=== PATIENT | female | born 1965 | race Caucasian/White ===

== ENCOUNTER 2021-08-25 07:22 | Emergency (ER) | payer BC ==
[2021-08-25] MEDS ORDERED: Ondansetron 4 MG/2 ML SDV IVPUSH ONE (08:18)
--- NOTE | 2021-08-25 08:26 | EDM.PDOC ---
ED HPI GENERAL MEDICAL PROBLEM - General Chief Complaint: Back Pain or Injury Stated Complaint: BACK PAIN Time Seen by Provider: 08/25/21 07:57 Source of Information: Reports: Patient History Limitations: Reports: No Limitations - History of Present Illness INITIAL COMMENTS - FREE TEXT/NARRATIVE: Ms. Santos is a pleasant 56-year-old woman who now presents to the ED due to a "gallbladder attack". She states that she developed right upper quadrant pain that radiates through to her right infrascapular area on 08/22/2021. She is unable to describe the character of the pain. She states that it is constant. Initially, she felt better if supine, sometimes, but more recently, position makes no difference. She states that she has had nausea, but no emesis. She is also had some watery diarrhea. No recent fever. She has not taken any [id number] or home remedies to address her symptoms. No prior similar symptoms. The patient last ate around 18:00 last night. Here in the ED, the patient's initial BP is found to be elevated at 205/101, otherwise, she is hemodynamically stable, afebrile, saturating 97% on room air. She appears to be relatively comfortable, in no acute distress. Prior to Wednesday, the patient denies having a recent fever, chills, sore throat, ear pain, nasal or sinus congestion, cough, dyspnea, chest pain, palpitations, nausea, vomiting, constipation, diarrhea, abdominal pain, urinary symptoms, recent weight gain or weight loss, recent bloody bowel movements or black bowel movements, recent joint aches, headaches, or rashes. The patient's PCP is Hanna Rosario NP. She has not received a COVID vaccination, however, she has received an influenza vaccination this season. Right Upper Abdomen Pain Score (Numeric/FACES): 8 - Related Data Allergies Allergy/AdvReac Type Severity Reaction Status Date / Time No Known Allergies Allergy Verified 08/25/21 07:38 Home Meds: Home Meds Levothyroxine [Synthroid] 50 mcg PO ACBREAKFAST 08/25/21 [History] Losartan [Cozaar] 50 mg PO BEDTIME 08/25/21 [History] Ondansetron [Zofran ODT] 1 tab PO Q8H PRN #10 tab.dis 08/25/21 [Rx] Rosuvastatin [Crestor] 10 mg PO BEDTIME 08/25/21 [History] Sertraline [Zoloft] 100 mg PO BEDTIME 08/25/21 [History] Past Medical History Cardiovascular History: Reports: High Cholesterol, Hypertension Psychiatric History: Reports: Anxiety, Depression Endocrine/Metabolic History: Reports: Hypothyroidism - Past Surgical History HEENT Surgical History: Reports: Oral Surgery (dental extractions) Female Surgical History: Reports: Endometrial Ablation Social & Family History - Tobacco Use Tobacco Use Status *Q: Current Every Day Tobacco User Tobacco Use Within Last Twelve Months: Other (See Below) (Also uses nicotine pouches) Years of Tobacco use: 43 Packs/Tins Daily: 0.1 Packs/Tins Daily Comment: Down from 1 ppd Tobacco Use Comment: Started smoking 1977 - Caffeine Use Caffeine Use: Reports: Coffee, Tea - Alcohol Use Alcohol Use History: Yes Alcohol Use Frequency: Daily - Recreational Drug Use Recreational Drug Use: Yes Drug Use in Last 12 Months: Yes Recreational Drug Type: Reports: Marijuana/Hashish (smokes 2-3x/wk) - Living Situation & Occupation Living situation: Reports: , Alone Occupation: Employed ([employer]) ED ROS GENERAL - Review of Systems Review Of Systems: Comprehensive ROS is negative, except as noted in HPI. ED EXAM, GI/ABD - Physical Exam Exam: See Below Exam Limited By: No Limitations General Appearance: Alert, WD/WN, No Apparent Distress Eyes: Bilateral: Normal Appearance, EOMI Ears: Normal External Exam, Hearing Grossly Normal Nose: Normal Inspection Throat/Mouth: Normal Inspection, Normal Lips, Normal Voice, No Airway Compromise Head: Atraumatic, Normocephalic Neck: Normal Inspection, Full Range of Motion Respiratory/Chest: No Respiratory Distress, Lungs Clear, Normal Breath Sounds, No Accessory Muscle Use Cardiovascular: Normal Peripheral Pulses, Regular Rate, Rhythm, No Edema, No Gallop, No JVD, No Murmur, No Rub GI/Abdominal Exam: Normal Bowel Sounds, Soft, Non-Tender, No Organomegaly, No Distention, No Abnormal Bruit, No Mass, Pelvis Stable (Female) Exam: Normal External Exam, Normal Speculum Exam, Normal Bimanual Exam Rectal (Female) Exam: Normal Exam, Normal Rectal Tone Back Exam: Normal Inspection, Full Range of Motion, NT Extremities: Normal Inspection, Normal Range of Motion, Non-Tender, Normal Capillary Refill, No Pedal Edema Neurological: Alert, Oriented, CN II-XII Intact, Normal Cognition, Normal Gait, Normal Reflexes, No Motor/Sensory Deficits Psychiatric: Normal Affect, Normal Mood Skin Exam: Warm, Dry, Intact, Normal Color, No Rash Lymphatic: No Adenopathy Course - Vital Signs Last Recorded V/S: Last Vital Signs Temp 35.9 C L 08/25/21 07:35 Pulse 69 08/25/21 07:35 Resp 18 08/25/21 07:35 BP 205/101 H 08/25/21 07:35 Pulse Ox 97 08/25/21 07:35 - Orders/Labs/Meds Labs: Laboratory Tests 08/25/21 08/25/21 08/25/21 Range/Units 07:50 07:50 08:18 WBC 6.64 (3.98-10.04) K/mm3 RBC 4.24 (3.98-5.22) M/mm3 Hgb 13.5 (11.2-15.7) gm/dl Hct 43.3 (34.1-44.9) % MCV 102.1 H (79.4-94.8) fl MCH 31.8 (25.6-32.2) pg MCHC 31.2 L (32.2-35.5) g/dl RDW Std Deviation 45.7 (36.4-46.3) fL Plt Count 197 (182-369) K/mm3 MPV 10.4 (9.4-12.3) fl Neutrophils % (Manual) 51 (40-60) % Band Neutrophils % 0 (0-10) % Lymphocytes % (Manual) 36 (20-40) % Atypical Lymphs % 0 % Monocytes % (Manual) 11 H (2-10) % Eosinophils % (Manual) 2 (0.7-5.8) % Basophils % (Manual) 0 L (0.1-1.2) Platelet Estimate Adequate Anisocytosis 1+ slight Macrocytosis 1+ slight RBC Morph Comment Abnormal Sodium 142 (136-145) mEq/L Potassium 4.1 (3.5-5.1) mEq/L Chloride 106 (98-107) mEq/L Carbon Dioxide 25 (21-32) mEq/L Anion Gap 15.1 H (5-15) BUN 20 H (7-18) mg/dL Creatinine 0.9 (0.55-1.02) mg/dL Est Cr Clr Drug Dosing 62.80 mL/min Estimated GFR (MDRD) > 60 (>60) mL/min BUN/Creatinine Ratio 22.2 H (14-18) Glucose 91 (70-99) mg/dL Calcium 8.7 (8.5-10.1) mg/dL Total Bilirubin 0.4 (0.2-1.0) mg/dL AST 27 (15-37) U/L ALT 58 (14-59) U/L Alkaline Phosphatase 67 (46-116) U/L Total Protein 7.2 (6.4-8.2) g/dl Albumin 3.9 (3.4-5.0) g/dl Globulin 3.3 gm/dL Albumin/Globulin Ratio 1.2 (1-2) Lipase 159 (73-393) U/L Urine Color Light yellow (Yellow) Urine Appearance Clear (Clear) Urine pH 6.0 (5.0-8.0) Ur Specific Belcher 1.025 (1.005-1.030) Urine Protein Negative (Negative) Urine Glucose (UA) Negative (Negative) Urine Ketones Negative (Negative) Urine Occult Blood Negative (Negative) Urine Nitrite Negative (Negative) Urine Bilirubin Negative (Negative) Urine Urobilinogen 0.2 (0.2-1.0) Ur Leukocyte Esterase Negative (Negative) Urine RBC 0-5 (0-5) /hpf Urine WBC 0-5 (0-5) /hpf Ur Squamous Epith Cells 0-5 (0-5) /hpf Urine Bacteria Few (FEW) /hpf Urine Mucus Few (FEW) /hpf Urine HCG, Qual (NEGATIVE) 08/25/21 Range/Units 08:18 WBC (3.98-10.04) K/mm3 RBC (3.98-5.22) M/mm3 Hgb (11.2-15.7) gm/dl Hct (34.1-44.9) % MCV (79.4-94.8) fl MCH (25.6-32.2) pg MCHC (32.2-35.5) g/dl RDW Std Deviation (36.4-46.3) fL Plt Count (182-369) K/mm3 MPV (9.4-12.3) fl Neutrophils % (Manual) (40-60) % Band Neutrophils % (0-10) % Lymphocytes % (Manual) (20-40) % Atypical Lymphs % % Monocytes % (Manual) (2-10) % Eosinophils % (Manual) (0.7-5.8) % Basophils % (Manual) (0.1-1.2) Platelet Estimate Anisocytosis Macrocytosis RBC Morph Comment Sodium (136-145) mEq/L Potassium (3.5-5.1) mEq/L Chloride (98-107) mEq/L Carbon Dioxide (21-32) mEq/L Anion Gap (5-15) BUN (7-18) mg/dL Creatinine (0.55-1.02) mg/dL Est Cr Clr Drug Dosing mL/min Estimated GFR (MDRD) (>60) mL/min BUN/Creatinine Ratio (14-18) Glucose (70-99) mg/dL Calcium (8.5-10.1) mg/dL Total Bilirubin (0.2-1.0) mg/dL AST (15-37) U/L ALT (14-59) U/L Alkaline Phosphatase (46-116) U/L Total Protein (6.4-8.2) g/dl Albumin (3.4-5.0) g/dl Globulin gm/dL Albumin/Globulin Ratio (1-2) Lipase (73-393) U/L Urine Color (Yellow) Urine Appearance (Clear) Urine pH (5.0-8.0) Ur Specific Belcher (1.005-1.030) Urine Protein (Negative) Urine Glucose (UA) (Negative) Urine Ketones (Negative) Urine Occult Blood (Negative) Urine Nitrite (Negative) Urine Bilirubin (Negative) Urine Urobilinogen (0.2-1.0) Ur Leukocyte Esterase (Negative) Urine RBC (0-5) /hpf Urine WBC (0-5) /hpf Ur Squamous Epith Cells (0-5) /hpf Urine Bacteria (FEW) /hpf Urine Mucus (FEW) /hpf Urine HCG, Qual Negative (NEGATIVE) Meds: Medications Discontinued Medications Generic Name Dose Route Start Last Admin Trade Name Freq PRN Reason Stop Dose Admin Diatrizoate Meglum/Diatrizoate Sod 120 ml 08/25/21 09:21 08/25/21 10:43 Diatrizoate Meglumine/Diatrizoate Sodium 37% 120 Ml Bottle PO 08/25/21 09:22 30 ml ONETIME ONE Administration Sodium Chloride 1,000 mls @ 150 mls/hr 08/25/21 08:30 08/25/21 09:06 Normal Saline IV 150 mls/hr ASDIRECTED SEBASTIAN Administration Iopamidol 100 ml 08/25/21 09:21 08/25/21 10:43 Iopamidol 612 Mg/Ml 100 Ml Bottle IVPUSH 08/25/21 09:22 100 ml ONETIME ONE Administration Ondansetron HCl 4 mg 08/25/21 08:18 08/25/21 09:06 Ondansetron 4 Mg/2 Ml Sdv IVPUSH 08/25/21 08:19 4 mg ONETIME ONE Administration Sodium Chloride 10 ml 08/25/21 09:21 08/25/21 10:43 Sodium Chloride 0.9% 10 Ml Syringe FLUSH 10 ml ONETIME PRN Administration IV FLUSH - Re-Assessments/Exams Free Text/Narrative Re-Assessment/Exam: 08/25/21 08:20 The patient's presentation is consistent with acute cholecystitis, however, her symptoms could also be due to an unusual presentation of a right ureterolith. I have ordered a work-up that includes several blood tests, a urinalysis by clean-catch, a urine test, and ultrasound of the right upper quadrant, and a CT of the abdomen and pelvis with oral and IV contrast. In the meantime, the patient will be treated with IV Zofran and IV fluid. She is declining pain medication at this time, but was instructed to let the nurse know if she changes her mind. 08/25/21 10:56 The patient's CBC is unremarkable. Her CMP is remarkable for a BUN slightly elevated 20, with a Cr within normal limits at 0.9, with remainder of her CMP being unremarkable. Her lipase level is within normal limits at 159. Her urinalysis is unremarkable. Her urine test is negative. Ultrasound of the right upper quadrant is read by Dr. Narvaez as: 1. No abnormalities identified on right upper quadrant abdominal ultrasound. 08/25/21 11:00 CT of the abdomen and pelvis with oral and IV contrast is read by Dr. Narvaez as: 1. Findings were felt to be chronic as noted above. 2. Nothing acute is appreciated on CT study of the abdomen and pelvis. 08/25/21 11:04 Test results discussed with the patient. As above, today's work-up is completely unremarkable, and does not explain the cause of her pain. I explained to the patient that a negative work-up does not necessarily mean that her pain is not due to a sick gallbladder, and that further work-up, including a HIDA scan, is needed. I will refer her to Dr. Vega for further evaluation. I will submit a prescription for Zofran ODT to [facility]. She is to stay adequately hydrated, and avoid fatty foods. Departure - Departure Time of Disposition: 11:06 Disposition: Home, Self-Care 01 Condition: Good Clinical Impression: Right upper quadrant abdominal pain of unknown etiology - Discharge Information *PRESCRIPTION DRUG MONITORING PROGRAM REVIEWED*: Not Applicable *COPY OF PRESCRIPTION DRUG MONITORING REPORT IN PATIENT FUAD: Not Applicable Prescriptions: Ondansetron [Zofran ODT] 1 tab PO Q8H PRN #10 tab.dis PRN Reason: Nausea/Vomiting Instructions: Abdominal Pain, Adult, [id number] Referrals: Hanna Rosario NP [Primary Care Provider] - Allen Vega MD [Physician] - Forms: ED Department Discharge Additional Instructions: You were seen in the emergency room for upper right abdominal pain radiating through to your right back, with nausea and watery diarrhea, since Wednesday. Work-up in the ER included several blood tests, a urinalysis, a urine test, an ultrasound of your upper right abdomen, and a CT of your abdomen and pelvis with oral and IV contrast. Your entire work-up was unremarkable, and does not explain the cause of your pain. As discussed, just because the work-up is negative in the ER, it does not necessarily mean that your pain is not from your gallbladder. Further work-up is needed. Stay adequately hydrated and eat a low-fat diet. A prescription for the antinausea medicine Zofran ODT has been sent to the [facility], located at [address] [place] [address]. You may dissolve 1 tablet of Zofran ODT on your tongue up to every 8 hours, as needed for nausea/vomiting. Please follow-up with the Surgeon Dr. Allen Vega at the next available appointment. If any other problems, please do not hesitate to return to the ER. Sepsis Event Note (ED) - Evaluation Sepsis Screening Result: No Definite Risk
[2021-08-25] MEDS ORDERED: Sodium Chloride 0.9% 1,000 ML IV SCH (08:30)
[2021-08-25] MEDS ORDERED: Iopamidol 612 MG/ML 100 ML Bottle IVPUSH ONE (09:21)
[2021-08-25] MEDS ORDERED: Diatrizoate Meglumine/Diatrizoate Sodium 37% 120 ML Bottle PO ONE (09:21)
--- NOTE | 2021-08-25 09:51 | US ---
Limited abdominal ultrasound: Multiple real-time images of the upper right abdomen are obtained. Comparison: No prior abdominal imaging is available. Liver shows no focal abnormality. Gallbladder contains no shadowing gallstones. No gallbladder wall thickening or biliary duct dilatation is seen. Right kidney shows no hydronephrosis or mass. Right kidney has a length of 9.3 cm. Proximal aorta shows no aneurysm. Tail of the pancreas is obscured by bowel gas. Other portions of the pancreas are felt to be within normal limits. Inferior vena cava is patent. Main portal vein shows normal hepatopedal flow. Impression: 1. No abnormality is identified on right upper quadrant abdominal ultrasound. Diagnostic code #1
[2021-08-25] MEDS: Sodium Chloride 0.9% 10 ML Syringe FLUSH PRN ×2 (10:04→10:43)
--- NOTE | 2021-08-25 10:59 | CT ---
CT abdomen and pelvis Technique: Multiple axial sections were obtained from above the dome of the diaphragm inferiorly through the pubic symphysis. Intravenous and oral contrast were utilized. Delayed images were also obtained through the bladder. Reconstructed coronal and sagittal images were obtained. Comparison: Prior limited abdominal ultrasound of 08/25/21. Findings: Visualized lung bases show nothing acute. Small area of fatty eventration is seen within the posterior right hemidiaphragm which is incidental. Liver contains no focal parenchymal abnormality. Spleen size is normal. Adrenal glands show no nodule. Pancreas shows no abnormality. Gallbladder contains no calcified gallstones. Kidneys show symmetric contrast enhancement without hydronephrosis or mass. Abdominal aorta shows atherosclerotic calcification which continues into the iliac vessels. No aneurysm is seen. No retroperitoneal adenopathy is noted. No mesenteric abnormalities are seen. Appendix is seen which is normal in size. No bowel wall thickening is appreciated. No pelvic mass or adenopathy is seen. Delayed images show contrast within the distal ureters and within the bladder. Bone window settings were reviewed which show nothing acute for the patient's age. Impression: 1. Findings felt to be chronic as noted above. 2. Nothing acute is appreciated on CT study of the abdomen and pelvis. Diagnostic code #1
== END 2021-08-25 11:29 | disposition home or self-care (01) ==
LOC: JD.ED 07:22
DX: R10.11 Right upper quadrant pain (principal); E03.9 Hypothyroidism, unspecified; I10 Essential (primary) hypertension; E78.00 Pure hypercholesterolemia, unspecified; Z72.0 Tobacco use; Z79.899 Other long term (current) drug therapy
CPT/HCPCS: 36415; 74177; 76705; 80053; 81001; 81025; 83690; 85007; 85027; 96374; 99284; J2405; J7030; Q9963; Q9967

== ENCOUNTER 2021-11-06 10:45 | Emergency (ER) | payer BC ==
[2021-11-06] MEDS ORDERED: Sodium Chloride 0.9% 10 ML Syringe FLUSH PRN (11:16)
[2021-11-06] MEDS ORDERED: Albuterol 0.083% 2.5 MG/3 ML Neb Soln NEB ONE ×2 (11:38→12:43)
[2021-11-06] MEDS ORDERED: Benzonatate 100 MG Cap PO ONE (11:38)
--- NOTE | 2021-11-06 11:55 | EDM.PDOC ---
ED HPI GENERAL MEDICAL PROBLEM - General Chief Complaint: Respiratory Problem Stated Complaint: COUGH/WHEEZING/RESPIRATORY ISSUES Time Seen by Provider: 11/06/21 11:09 Source of Information: Reports: Patient History Limitations: Reports: No Limitations, Other (ED vital signs reveal a temp of 96.9, pulse 100, respiratory rate of 18, blood pressure 171/89, pulse ox 87% on room air.) - History of Present Illness INITIAL COMMENTS - FREE TEXT/NARRATIVE: 56-year-old female presents the emergency department today with complaints of cough, dyspnea, chest discomfort associated with cough and decreased appetite. Patient states she started not feeling well 4 days ago however 3 days ago she states that she woke and felt significantly worse. She states that for the past couple of nights she is woken up in a cold sweat. She denies any urinary symptoms. She was evaluated at the walk-in clinic yesterday and states she was swabbed for Covid however she states that she does not feel that they swabbed her adequately. She was then sent home with prescription cough medication which she states has not helped at all. At the time of the patient's arrival to triage, her O2 saturations are 87% on room air. O2 is applied at 2 L per nasal cannula and her sats increased to 100%. States she does have a history of smoking however quit in January 2021. [id number] history. She states she has not had her Covid vaccine nor she had her influenza vaccine. Chest Pain Score (Numeric/FACES): 5 Abdomen Pain Score (Numeric/FACES): 9 - Related Data Allergies Allergy/AdvReac Type Severity Reaction Status Date / Time No Known Allergies Allergy Verified 11/06/21 10:57 Home Meds: Home Meds Levothyroxine [Synthroid] 50 mcg PO ACBREAKFAST 08/25/21 [History] Losartan [Cozaar] 50 mg PO BEDTIME 08/25/21 [History] Ondansetron [Zofran ODT] 1 tab PO Q8H PRN #10 tab.dis 08/25/21 [Rx] Rosuvastatin [Crestor] 10 mg PO BEDTIME 08/25/21 [History] Sertraline [Zoloft] 200 mg PO BEDTIME 08/25/21 [History] Albuterol Sulfate [Albuterol Sulfate Hfa] 2 puff IH Q4H #1 hfa.aer.ad 11/06/21 [Rx] Benzonatate [Tessalon Perles] 100 mg PO TID PRN #20 cap 11/06/21 [Rx] predniSONE [Prednisone] 40 mg PO DAILY #14 tablet 11/06/21 [Rx] Past Medical History Cardiovascular History: Reports: High Cholesterol, Hypertension Gastrointestinal History: Reports: Cholelithiasis HEAD WO[employer] GR[employer]ER History: Reports: Psychiatric History: Reports: Anxiety, Depression Endocrine/Metabolic History: Reports: Hypothyroidism - Infectious Disease History Infectious Disease History: Reports: Chicken Pox - Past Surgical History HEENT Surgical History: Reports: Oral Surgery Female Surgical History: Reports: Endometrial Ablation Dermatological Surgical History: Reports: Other (See Below) Social & Family History - Tobacco Use Tobacco Use Status *Q: Former Tobacco User Years of Tobacco use: 20 Packs/Tins Daily: 0.5 Used Tobacco, but Quit: Yes Month/Year Tobacco Last Used: January 2021 - Caffeine Use Caffeine Use: Reports: Coffee, Tea - Alcohol Use Days Per Week of Alcohol Use: 7 Number of Drinks Per Day: 1 Total Drinks Per Week: 7 - Recreational Drug Use Recreational Drug Use: Yes Drug Use in Last 12 Months: Yes Recreational Drug Type: Reports: Marijuana/Hashish Recreational Drug Use Frequency: Rarely - Living Situation & Occupation Living situation: Reports: , Alone Occupation: Employed ([employer]) ED ROS GENERAL - Review of Systems Review Of Systems: Comprehensive ROS is negative, except as noted in HPI. ED EXAM, GENERAL - Physical Exam Exam: See Below Exam Limited By: No Limitations General Appearance: Alert, WD/WN, Moderate Distress Ears: Normal External Exam, Hearing Grossly Normal Nose: Normal Inspection Throat/Mouth: Normal Inspection, Normal Lips, Normal Voice, No Airway Compromise Head: Atraumatic Neck: Normal Inspection, Supple Respiratory/Chest: Chest Non-Tender, Decreased Breath Sounds, Wheezing (Expiratory wheezing noted bilaterally), Accessory Muscle Use Cardiovascular: Normal Peripheral Pulses, Regular Rate, Rhythm, No Edema, No Murmur Peripheral Pulses: 2+: Radial (L), Radial (R) GI/Abdominal: Normal Bowel Sounds, Soft, Non-Tender, No Distention (Female) Exam: Deferred Rectal (Female) Exam: Deferred Back Exam: Normal Inspection Extremities: Normal Inspection Neurological: Alert, Oriented, Normal Cognition Psychiatric: Normal Affect, Normal Mood Skin Exam: Warm, Dry, Intact, Normal Color, No Rash Lymphatic: No Adenopathy Course - Vital Signs Text/Narrative:: As above, patient presents with flulike symptoms and shortness of breath that started 4 days ago. Patient states she is feeling very short of breath. She is dyspneic at rest speaking in a few word sentences at a time. Lung sounds with wheezes noted bilaterally. Remainder of physical exam is unremarkable. Will obtain lab studies as well as chest x-ray, urinalysis with micro and testing for Covid and influenza. I have ordered for the patient to receive a nebulizer breathing treatment as well as Tessalon Perles. Last Recorded V/S: Last Vital Signs Temp 96.9 F 11/06/21 10:55 Pulse 100 11/06/21 10:55 Resp 18 11/06/21 10:55 BP 171/89 H 11/06/21 10:55 Pulse Ox 95 11/06/21 13:16 - Orders/Labs/Meds Orders: Active Orders 24 hr Category Date Time Status RT Aerosol Therapy [RC] ASDIRECTED Care 11/06/21 11:39 Active RT Aerosol Therapy [RC] ASDIRECTED Care 11/06/21 12:43 Active Sodium Chloride 0.9% [Saline Flush] Med 11/06/21 11:16 Active 10 ml FLUSH ASDIRECTED PRN Saline Lock Insert [OM.PC] Stat Oth 11/06/21 11:16 Ordered Medication Orders Sodium Chloride (Sodium Chloride 0.9% 10 Ml Syringe) 10 ml FLUSH ASDIRECTED PRN PRN Reason: Keep Vein Open Last Admin: 11/06/21 11:35 Dose: 10 ml Documented by: PAIGE Labs: Laboratory Tests 11/06/21 11/06/21 11/06/21 Range/Units 11:05 11:20 11:35 WBC 5.47 (3.98-10.04) K/mm3 RBC 4.27 (3.98-5.22) M/mm3 Hgb 13.7 (11.2-15.7) gm/dl Hct 43.8 (34.1-44.9) % MCV 102.6 H (79.4-94.8) fl MCH 32.1 (25.6-32.2) pg MCHC 31.3 L (32.2-35.5) g/dl RDW Std Deviation 46.6 H (36.4-46.3) fL Plt Count 185 (182-369) K/mm3 MPV 10.1 (9.4-12.3) fl Neut % (Auto) 54.1 (34.0-71.1) % Lymph % (Auto) 29.3 (19.3-51.7) % [place] % (Auto) 14.6 H (4.7-12.5) % Eos % (Auto) 1.1 (0.7-5.8) Baso % (Auto) 0.7 (0.1-1.2) % Neut # (Auto) 2.96 (1.56-6.13) K/mm3 Lymph # (Auto) 1.60 (1.18-3.74) K/mm3 [place] # (Auto) 0.80 H (0.24-0.36) K/mm3 Eos # (Auto) 0.06 (0.04-0.36) K/mm3 Baso # (Auto) 0.04 (0.01-0.08) K/mm3 D-Dimer, Quantitative (0.19-0.50) mg/L Puncture Site ABG pH (7.35-7.45) ABG pCO2 (35.0-45.0) mmHg ABG pO2 (80.0-100.0) mmHg ABG HCO3 (22.0-26.0) meq/L ABG O2 Saturation (96.0-97.0) % ABG Base Excess (-2-2.0) Virgil Test A-a Gradient mmHg O2 Delivery Device FiO2 (21.00-100.00) % Sodium (136-145) mEq/L Potassium (3.5-5.1) mEq/L Chloride (98-107) mEq/L Carbon Dioxide (21-32) mEq/L Anion Gap (5-15) BUN (7-18) mg/dL Creatinine (0.55-1.02) mg/dL Est Cr Clr Drug Dosing mL/min Estimated GFR (MDRD) (>60) mL/min BUN/Creatinine Ratio (14-18) Glucose (70-99) mg/dL Calcium (8.5-10.1) mg/dL Magnesium (1.8-2.4) mg/dL Ferritin (8-252) ng/ml Total Bilirubin (0.2-1.0) mg/dL AST (15-37) U/L ALT (14-59) U/L Alkaline Phosphatase (46-116) U/L Lactate Dehydrogenase (81-234) U/L C-Reactive Protein (<1.0) mg/dL Total Protein (6.4-8.2) g/dl Albumin (3.4-5.0) g/dl Globulin gm/dL Albumin/Globulin Ratio (1-2) Urine Color Yellow (Yellow) Urine Appearance Clear (Clear) Urine pH 6.0 (5.0-8.0) Ur Specific [place] > or = 1.030 (1.005-1.030) Urine Protein 2+ H (Negative) Urine Glucose (UA) Negative (Negative) Urine Ketones Trace H (Negative) Urine Occult Blood Negative (Negative) Urine Nitrite Negative (Negative) Urine Bilirubin 1+ H (Negative) Urine Urobilinogen 0.2 (0.2-1.0) Ur Leukocyte Esterase Negative (Negative) U Hyaline Cast (Auto) 20-30 H (0-5) /lpf Urine RBC 0-5 (0-5) /hpf Urine WBC 0-5 (0-5) /hpf Ur Epithelial Cells 5-10 H (0-5) /hpf Urine Bacteria Few (FEW) /hpf Urine Mucus Moderate H (FEW) /hpf Influenza Type A RNA Negative (NEGATIVE) Influenza Type B RNA Negative (NEGATIVE) SARS-CoV-2 RNA (CLINT) Negative (NEGATIVE) 11/06/21 11/06/21 11/06/21 Range/Units 11:35 11:35 11:35 WBC (3.98-10.04) K/mm3 RBC (3.98-5.22) M/mm3 Hgb (11.2-15.7) gm/dl Hct (34.1-44.9) % MCV (79.4-94.8) fl MCH (25.6-32.2) pg MCHC (32.2-35.5) g/dl RDW Std Deviation (36.4-46.3) fL Plt Count (182-369) K/mm3 MPV (9.4-12.3) fl Neut % (Auto) (34.0-71.1) % Lymph % (Auto) (19.3-51.7) % [place] % (Auto) (4.7-12.5) % Eos % (Auto) (0.7-5.8) Baso % (Auto) (0.1-1.2) % Neut # (Auto) (1.56-6.13) K/mm3 Lymph # (Auto) (1.18-3.74) K/mm3 [place] # (Auto) (0.24-0.36) K/mm3 Eos # (Auto) (0.04-0.36) K/mm3 Baso # (Auto) (0.01-0.08) K/mm3 D-Dimer, Quantitative 0.20 (0.19-0.50) mg/L Puncture Site ABG pH (7.35-7.45) ABG pCO2 (35.0-45.0) mmHg ABG pO2 (80.0-100.0) mmHg ABG HCO3 (22.0-26.0) meq/L ABG O2 Saturation (96.0-97.0) % ABG Base Excess (-2-2.0) Virgil Test A-a Gradient mmHg O2 Delivery Device FiO2 (21.00-100.00) % Sodium 142 (136-145) mEq/L Potassium 3.6 (3.5-5.1) mEq/L Chloride 103 (98-107) mEq/L Carbon Dioxide 28 (21-32) mEq/L Anion Gap 14.6 (5-15) BUN 15 (7-18) mg/dL Creatinine 0.9 (0.55-1.02) mg/dL Est Cr Clr Drug Dosing 62.80 mL/min Estimated GFR (MDRD) > 60 (>60) mL/min BUN/Creatinine Ratio 16.7 (14-18) Glucose 107 H (70-99) mg/dL Calcium 8.8 (8.5-10.1) mg/dL Magnesium 2.2 (1.8-2.4) mg/dL Ferritin 813 H (8-252) ng/ml Total Bilirubin 0.4 (0.2-1.0) mg/dL AST 19 (15-37) U/L ALT 32 (14-59) U/L Alkaline Phosphatase 73 (46-116) U/L Lactate Dehydrogenase (81-234) U/L C-Reactive Protein 3.0 H* (<1.0) mg/dL Total Protein 7.5 (6.4-8.2) g/dl Albumin 3.7 (3.4-5.0) g/dl Globulin 3.8 gm/dL Albumin/Globulin Ratio 1.0 (1-2) Urine Color (Yellow) Urine Appearance (Clear) Urine pH (5.0-8.0) Ur Specific [place] (1.005-1.030) Urine Protein (Negative) Urine Glucose (UA) (Negative) Urine Ketones (Negative) Urine Occult Blood (Negative) Urine Nitrite (Negative) Urine Bilirubin (Negative) Urine Urobilinogen (0.2-1.0) Ur Leukocyte Esterase (Negative) U Hyaline Cast (Auto) (0-5) /lpf Urine RBC (0-5) /hpf Urine WBC (0-5) /hpf Ur Epithelial Cells (0-5) /hpf Urine Bacteria (FEW) /hpf Urine Mucus (FEW) /hpf Influenza Type A RNA (NEGATIVE) Influenza Type B RNA (NEGATIVE) SARS-CoV-2 RNA (CLINT) (NEGATIVE) 11/06/21 11/06/21 Range/Units 11:35 12:50 WBC (3.98-10.04) K/mm3 RBC (3.98-5.22) M/mm3 Hgb (11.2-15.7) gm/dl Hct (34.1-44.9) % MCV (79.4-94.8) fl MCH (25.6-32.2) pg MCHC (32.2-35.5) g/dl RDW Std Deviation (36.4-46.3) fL Plt Count (182-369) K/mm3 MPV (9.4-12.3) fl Neut % (Auto) (34.0-71.1) % Lymph % (Auto) (19.3-51.7) % [place] % (Auto) (4.7-12.5) % Eos % (Auto) (0.7-5.8) Baso % (Auto) (0.1-1.2) % Neut # (Auto) (1.56-6.13) K/mm3 Lymph # (Auto) (1.18-3.74) K/mm3 [place] # (Auto) (0.24-0.36) K/mm3 Eos # (Auto) (0.04-0.36) K/mm3 Baso # (Auto) (0.01-0.08) K/mm3 D-Dimer, Quantitative (0.19-0.50) mg/L Puncture Site Lt radial ABG pH 7.39 (7.35-7.45) ABG pCO2 38.7 (35.0-45.0) mmHg ABG pO2 76.0 L (80.0-100.0) mmHg ABG HCO3 22.9 (22.0-26.0) meq/L ABG O2 Saturation 98.1 H (96.0-97.0) % ABG Base Excess -1.3 (-2-2.0) Virgil Test Positive A-a Gradient 26 mmHg O2 Delivery Device Room air FiO2 21.00 (21.00-100.00) % Sodium (136-145) mEq/L Potassium (3.5-5.1) mEq/L Chloride (98-107) mEq/L Carbon Dioxide (21-32) mEq/L Anion Gap (5-15) BUN (7-18) mg/dL Creatinine (0.55-1.02) mg/dL Est Cr Clr Drug Dosing mL/min Estimated GFR (MDRD) (>60) mL/min BUN/Creatinine Ratio (14-18) Glucose (70-99) mg/dL Calcium (8.5-10.1) mg/dL Magnesium (1.8-2.4) mg/dL Ferritin (8-252) ng/ml Total Bilirubin (0.2-1.0) mg/dL AST (15-37) U/L ALT (14-59) U/L Alkaline Phosphatase (46-116) U/L Lactate Dehydrogenase 156 (81-234) U/L C-Reactive Protein (<1.0) mg/dL Total Protein (6.4-8.2) g/dl Albumin (3.4-5.0) g/dl Globulin gm/dL Albumin/Globulin Ratio (1-2) Urine Color (Yellow) Urine Appearance (Clear) Urine pH (5.0-8.0) Ur Specific [place] (1.005-1.030) Urine Protein (Negative) Urine Glucose (UA) (Negative) Urine Ketones (Negative) Urine Occult Blood (Negative) Urine Nitrite (Negative) Urine Bilirubin (Negative) Urine Urobilinogen (0.2-1.0) Ur Leukocyte Esterase (Negative) U Hyaline Cast (Auto) (0-5) /lpf Urine RBC (0-5) /hpf Urine WBC (0-5) /hpf Ur Epithelial Cells (0-5) /hpf Urine Bacteria (FEW) /hpf Urine Mucus (FEW) /hpf Influenza Type A RNA (NEGATIVE) Influenza Type B RNA (NEGATIVE) SARS-CoV-2 RNA (CLINT) (NEGATIVE) Meds: Medications Generic Name Dose Route Start Last Admin Trade Name Freq PRN Reason Stop Dose Admin Sodium Chloride 10 ml 11/06/21 11:16 11/06/21 11:35 Sodium Chloride 0.9% 10 Ml Syringe FLUSH 10 ml ASDIRECTED PRN Administration Keep Vein Open Discontinued Medications Generic Name Dose Route Start Last Admin Trade Name Freq PRN Reason Stop Dose Admin Albuterol 2.5 mg 11/06/21 11:38 11/06/21 11:49 Albuterol 0.083% 2.5 Mg/3 Ml Neb Soln NEB 11/06/21 11:39 2.5 mg ONETIME ONE Administration Albuterol 2.5 mg 11/06/21 12:43 11/06/21 13:16 Albuterol 0.083% 2.5 Mg/3 Ml Neb Soln NEB 11/06/21 12:44 2.5 mg ONETIME ONE Administration Benzonatate 100 mg 11/06/21 11:38 11/06/21 11:45 Benzonatate 100 Mg Cap PO 11/06/21 11:39 100 mg ONETIME ONE Administration Methylprednisolone Sodium Succinate 125 mg 11/06/21 12:12 11/06/21 13:13 Methylprednisolone Sodium Succinate 125 Mg/2 Ml Sdv IVPUSH 11/06/21 12:13 125 mg ONETIME ONE Administration - Re-Assessments/Exams Free Text/Narrative Re-Assessment/Exam: 11/06/21 12:17 Radiologist impression portable view of the chest: Normal heart size and pulmonary vascularity. Lungs are clear. 11/06/21 12:47 Reassessment of the patient reveals that patient still has wheezing noted bilaterally however she states she is feeling less short of breath. Respiratory therapy was in the room to obtain blood gases on room air. Patient has been on room air for approximately 10 minutes and her O2 saturations are 94 to 96% at this time. Suspect patient may be having exacerbation of COPD due to significant smoking history. We will also order for the patient to receive 125 mg of Solu-Medrol IV. 11/06/21 12:50 Hematology reveals a WBC of 5.47, hemoglobin 13.7, hematocrit 43.8, platelet count 185 Coagulation reveals a D-dimer of 0.20 Chemistry reveals a sodium of 142, potassium 3.6, anion gap 14.6, BUN 15, creatinine 0.9, GFR greater than 60, glucose 107, magnesium 2.2, ferritin 813, LDH 156, C-reactive protein 3.0 Urinalysis reveals 2+ protein, trace of ketones, 1+ bilirubin, leukocyte esterase negative, hyaline casts 20-30, epithelial cells 5-10, urine mucus moderate Serology reveals that the patient is negative for influenza A B and Covid 11/06/21 13:23 ABGs reveal a pH of 7.39, PCO2 38.7, PO2 76.0, bicarb 22.9 O2 saturation 98.1 on room air 11/06/21 13:45 After second albuterol treatment, the patient does still have wheezes appreciated however O2 saturations are 96% on room air. At this time, suspect the patient is having a COPD exacerbation. She will need further work-up from her primary care provider such as pulmonary function tests. She will be discharged home with a prescription for prednisone and an albuterol inhaler. Also send her home with Ailyn Curtis. She has been informed she does need to follow-up with your primary care provider early next week for further evaluation, however she has also been given strict return precautions. Departure - Departure Time of Disposition: 13:47 Disposition: Home, Self-Care 01 Condition: Good Clinical Impression: Shortness of breath - Discharge Information Prescriptions: Albuterol Sulfate [Albuterol Sulfate Hfa] 2 puff IH Q4H #1 hfa.aer.ad predniSONE [Prednisone] 40 mg PO DAILY #14 tablet Benzonatate [Tessalon Perles] 100 mg PO TID PRN #20 cap PRN Reason: Cough Instructions: Shortness of Breath, Adult, [id number] Referrals: Hanna Rosario [employer] [Primary Care Provider] - Forms: ED Department Discharge Additional Instructions: You were seen in the emergency department today with complaints of cough and shortness of breath. Full work-up was completed to include chest x-ray, lab studies, arterial blood gases, and Covid and influenza testing. Lab studies were essentially unremarkable. Chest x-ray does not show any sign of pneumonia or acute illness. Arterial blood gases were within normal limits. Covid and influenza testing is negative. You were initially on oxygen in the emergency department however once he received a nebulizer treatment your oxygen level did improve to 94 to 97% on room air. You also did receive IV steroids while in the emergency department and these will likely start to take effect over the next several hours. I have sent prescription to your pharmacy for an albuterol inhaler. You may take 2 puffs of this medication every 4 hours as needed for shortness of breath or wheezing. I have also sent a prescription for steroid called prednisone to your pharmacy. You will need to start taking 40 mg daily starting tomorrow until gone. This should help decrease inflammation in your airways causing the wheezing. I have also sent a cough medication called Tesfroilanon Perles to your pharmacy. You may take 1-2 tabs up to 3 times daily as needed for cough. Recommend that you follow-up with your primary care provider early next week for further evaluation. Should your condition worsen or change, do not hesitate returning to the emergency department. Sepsis Event Note (ED) - Evaluation Sepsis Screening Result: No Definite Risk - Focused Exam Vital Signs: Vital Signs Temp Pulse Resp BP Pulse Ox Pulse Ox Pulse Ox 11/06/21 13:16 95 11/06/21 11:39 97 11/06/21 10:55 96.9 F 100 18 171/89 H 87 L - My Orders Last 24 Hours: My Active Orders 11/06/21 11:16 Sodium Chloride 0.9% [Saline Flush] 10 ml FLUSH ASDIRECTED PRN Saline Lock Insert [OM.PC] Stat 11/06/21 11:39 RT Aerosol Therapy [RC] ASDIRECTED 11/06/21 12:43 RT Aerosol Therapy [RC] ASDIRECTED - Assessment/Plan Last 24 Hours: My Active Orders 11/06/21 11:16 Sodium Chloride 0.9% [Saline Flush] 10 ml FLUSH ASDIRECTED PRN Saline Lock Insert [OM.PC] Stat 11/06/21 11:39 RT Aerosol Therapy [RC] ASDIRECTED 11/06/21 12:43 RT Aerosol Therapy [RC] ASDIRECTED
--- NOTE | 2021-11-06 12:01 | CR ---
EXAM: XR CHEST 1 VIEW LOCATION: [facility] [employer] DATE/TIME: 11/06/2021 11:20 AM INDICATION: Sob, cough, hypoxia COMPARISON: None. IMPRESSION: Normal heart size and pulmonary vascularity. Lungs clear. SIGNED BY: Shaq Holm MD 11/06/2021 12:39 PM ERICH
[2021-11-06 12:05] LABS: CORONAVIRUS COVID-19 NAA NEGATIVE (NEGATIVE)
[2021-11-06] MEDS ORDERED: methylPREDNISolone Sodium Succinate 125 MG/2 ML SDV IVPUSH ONE (12:12)
== END 2021-11-06 14:30 | disposition home or self-care (01) ==
LOC: JD.ED 10:45
DX: R06.02 Shortness of breath (principal); E78.00 Pure hypercholesterolemia, unspecified; I10 Essential (primary) hypertension; E03.9 Hypothyroidism, unspecified; Z79.899 Other long term (current) drug therapy; Z87.891 Personal history of nicotine dependence; Z20.822 Contact with and (suspected) exposure to COVID-19
CPT/HCPCS: 0240U; 36415; 36600; 71045; 80053; 81001; 82728; 82803; 83615; 83735; 85025; 85379; 86140; 94640; 96374; 99285; A9270; J2930